=== PATIENT | female | born 1975 | race Caucasian/White ===

== ENCOUNTER 2020-10-08 01:58 | Inpatient (IN) | payer BC ==
[~2020-10-08] VITALS: Ht 165.1 cm; Wt 104.3 kg
[2020-10-08 02:29] VITALS: Ht 165.1 cm; Wt 104.3 kg
[2020-10-08 03:11] LABS: PLATELET COUNT 163 x10^3mcL (130-400)
[2020-10-08 03:12] LABS: BASOPHIL % 0 % (0-2)
[2020-10-08 03:17] LABS: CALCIUM 8.2 mg/dL (8.5-10.1); CARBON DIOXIDE 29.9 mmol/L (21-32); CHLORIDE SERUM 99 mmol/L (98-107); GFR1 > 60 mL/min; GLUCOSE SERUM 116 mg/dL (74-106); POTASSIUM SERUM 3.7 mmol/L (3.5-5.1); SODIUM SERUM 139 mmol/L (136-145)
[2020-10-08 03:21] LABS: ALKALINE PHOSPHATASE 102 U/L (46-116); ALT/SGPT 44 U/L (14-59); AST/SGOT 36 U/L (15-37); BILIRUBIN TOTAL 0.49 mg/dL (0.20-1.00); C REACTIVE PROTEIN 8.8 mg/dL (<=0.9); LACTIC DEHYDROGENASE (LDH) 452 U/L (100-190); TOTAL PROTEIN, SERUM 8.1 g/dL (6.4-8.2)
[2020-10-08 03:23] LABS: ALBUMIN 3.2 g/dL (3.4-5.0)
[2020-10-08 08:45] LABS: MAGNESIUM 2.3 mg/dL (1.8-2.4); PHOSPHOROUS 3.5 mg/dL (2.5-4.9)
[2020-10-08 10:11] VITALS: BP 114/57
[2020-10-08 13:57] VITALS: BP 114/57
[2020-10-08 15:57] LABS: UA SPECIFIC GRAVITY <=1.005 (1.005-1.035); microscopic required? YES; urine erythrocyte 3+ (NEGATIVE)
[2020-10-08 17:20] VITALS: BP 118/79
[2020-10-08 21:27] VITALS: BP 108/79
[2020-10-08 23:39] VITALS: BP 113/71
[2020-10-09] VITALS (7 sets, daily range): BP systolic 96–129; BP diastolic 60–79
[2020-10-09 06:36] LABS: BASOPHIL % 0.3 % (0-2); PLATELET COUNT 301 x10^3mcL (130-400)
[2020-10-09 06:58] LABS: CARBON DIOXIDE 29.9 mmol/L (21-32); CHLORIDE SERUM 102 mmol/L (98-107); CREATININE SERUM 0.8 mg/dL (0.6-1.0); GFR1 > 60 mL/min; GLUCOSE SERUM 114 mg/dL (74-106); POTASSIUM SERUM 3.8 mmol/L (3.5-5.1); SODIUM SERUM 141 mmol/L (136-145)
[2020-10-09 13:12] LABS: BILIRUBIN DIRECT 0.13 mg/dL (0.0-0.2); BILIRUBIN TOTAL 0.4 mg/dL (0.20-1.00); TOTAL PROTEIN, SERUM 7.2 g/dL (6.4-8.2)
[2020-10-09 13:34] LABS: ALBUMIN 3.3 g/dL (3.4-5.0)
[2020-10-10 05:28] VITALS: BP 123/69
[2020-10-10 07:21] LABS: BASOPHIL % 0.2 % (0-2); PLATELET COUNT 355 x10^3mcL (130-400); RED CELL DISTRIBUTION WIDTH 14.2 % (11.5-14.5)
[2020-10-10 07:38] LABS: ALKALINE PHOSPHATASE 84 U/L (46-116); ALT/SGPT 35 U/L (14-59); AST/SGOT 23 U/L (15-37); BILIRUBIN DIRECT 0.12 mg/dL (0.0-0.2); BILIRUBIN TOTAL 0.38 mg/dL (0.20-1.00); C REACTIVE PROTEIN 4.4 mg/dL (<=0.9); CALCIUM 8.9 mg/dL (8.5-10.1); CARBON DIOXIDE 29.4 mmol/L (21-32); CHLORIDE SERUM 103 mmol/L (98-107); CREATININE SERUM 0.8 mg/dL (0.6-1.0); GFR1 > 60 mL/min; GLUCOSE SERUM 104 mg/dL (74-106); POTASSIUM SERUM 3.6 mmol/L (3.5-5.1); SODIUM SERUM 141 mmol/L (136-145); TOTAL PROTEIN, SERUM 7.4 g/dL (6.4-8.2)
[2020-10-10 07:50] VITALS: BP 113/69
[2020-10-10 11:28] VITALS: BP 101/61
[2020-10-10 16:14] VITALS: BP 116/70
[2020-10-10 21:06] VITALS: BP 109/67
[2020-10-11 06:09] VITALS: BP 108/57
[2020-10-11 07:30] LABS: BASOPHIL % 0.3 % (0-2); RED CELL DISTRIBUTION WIDTH 14.5 % (11.5-14.5)
[2020-10-11 07:48] LABS: PLATELET COUNT 457 x10^3mcL (130-400)
[2020-10-11 07:52] LABS: C REACTIVE PROTEIN 2.9 mg/dL (<=0.9); CARBON DIOXIDE 31.1 mmol/L (21-32); CHLORIDE SERUM 103 mmol/L (98-107); CREATININE SERUM 0.9 mg/dL (0.6-1.0); GFR1 > 60 mL/min; GLUCOSE SERUM 98 mg/dL (74-106); POTASSIUM SERUM 3.5 mmol/L (3.5-5.1); SODIUM SERUM 141 mmol/L (136-145)
[2020-10-11 08:00] LABS: BILIRUBIN DIRECT 0.11 mg/dL (0.0-0.2); BILIRUBIN TOTAL 0.35 mg/dL (0.20-1.00); TOTAL PROTEIN, SERUM 7.8 g/dL (6.4-8.2)
[2020-10-11 08:01] LABS: ALBUMIN 3.2 g/dL (3.4-5.0)
[2020-10-11 09:08] VITALS: BP 123/76
[2020-10-11 13:21] VITALS: BP 129/74
[2020-10-11 16:45] VITALS: BP 130/75
[2020-10-11 21:06] VITALS: BP 112/70
[2020-10-12 05:13] VITALS: BP 147/89
[2020-10-12 08:32] VITALS: BP 124/60
[2020-10-12 10:52] LABS: BILIRUBIN DIRECT 0.12 mg/dL (0.0-0.2); BILIRUBIN TOTAL 0.3 mg/dL (0.20-1.00); TOTAL PROTEIN, SERUM 7.4 g/dL (6.4-8.2)
[2020-10-12 10:57] LABS: ALBUMIN 3.2 g/dL (3.4-5.0)
[2020-10-12 12:00] VITALS: BP 138/77
[2020-10-12 16:30] VITALS: BP 141/80
[2020-10-12 20:30] VITALS: BP 117/63
[2020-10-13 05:30] VITALS: BP 144/92
[2020-10-13 08:00] VITALS: BP 144/76
[2020-10-13 12:00] VITALS: BP 118/72
[2020-10-13 16:15] VITALS: BP 124/67
[2020-10-13 20:12] VITALS: BP 129/76
[2020-10-14 05:06] VITALS: BP 117/84
[2020-10-14 08:27] VITALS: BP 111/63
[2020-10-14] MEDS ORDERED: VENTOLIN H0.09 MG/A1 INH (08:56)
[2020-10-14] MEDS ORDERED: MUCINEX600 MG PO (08:58)
[2020-10-14] MEDS ORDERED: MEDI-FIRST ASP325 MG PO (09:01)
[2020-10-14] MEDS ORDERED: DECADRON6 MG PO (09:01)
[2020-10-14 10:31] VITALS: BP 111/63
[2020-10-14 12:22] VITALS: BP 108/64
[2020-10-14 16:26] VITALS: BP 117/66
== END 2020-10-14 17:14 | disposition left against medical advice (07) | DRG 871 ==
LOC: ED 01:58 → DU 07:37
PROVIDERS: Student in an Organized Health Care Education/Training Program; ADMIT Family Medicine; ATTEND Family Medicine
PROC: XW033E5 Introduction of Remdesivir Anti-infective into Peripheral Vein, Percutaneous Approach, New Technology Group 5 (ICD-10-PCS; 2020-10-08)
PROC: XW13325 Transfusion of Convalescent Plasma (Nonautologous) into Peripheral Vein, Percutaneous Approach, New Technology Group 5 (ICD-10-PCS; principal; 2020-10-09)
DX: A41.9 Sepsis, unspecified organism (principal); U07.1 COVID-19; J12.89 Other viral pneumonia; J96.01 Acute respiratory failure with hypoxia; E03.9 Hypothyroidism, unspecified; E78.5 Hyperlipidemia, unspecified; R73.03 Prediabetes; Z79.899 Other long term (current) drug therapy
CPT/HCPCS: 36600; 82962; 83880; 85378; G0378; J0456; J0696; J1100; J1650; J3535; J7030; J7040; J7050; J7060; Q9967; U0003